=== PATIENT | female | born 1970 | race Two or more races ===

== ENCOUNTER 2019-04-17 14:30 | Emergency (ER) | payer SELFPAY ==
[~2019-04-17] VITALS: Ht 167.6 cm; Wt 60.0 kg
[2019-04-17 14:40] VITALS: BP 114/70
== END 2019-04-17 20:57 | disposition left against medical advice (07) ==
LOC: ER 14:30
DX: Z53.21 Procedure and treatment not carried out due to patient leaving prior to being seen by health care provider (principal)